=== PATIENT | female | born 1980 | race Hispanic/Latino ===

== ENCOUNTER 2019-03-19 08:21 | Emergency (ER) | payer MEDICAID ==
[2019-03-19 09:11] LABS: #Eosinphils 0.1 thou/uL (0.0-0.7); #Lymphocytes 1.8 thou/uL (1.20-3.40); #Monocytes 0.3 thou/uL (0.11-0.59); #Neutrophils 4.2 thou/uL (1.40-6.50); %Basophils 0.4 % (0.0-1.0); %Eosinophils 1.1 % (0.0-10.0); %Lymphocytes 27.9 % (21.0-51.0); %Monocytes 4.5 % (0.0-10.0); %Neutrophils 66.1 % (42.0-75.0); Hemoglobin 14.6 g/dL (12.0-16.0); Mean Corpuscular HGB CONC 33.4 g/dL (32.0-36.0); Mean Corpuscular Hemoglobin 31.4 pg (27.0-31.0); Mean Platelet Volume 6.9 fL (7.4-10.4); Platelet Count 340 thou/uL (130-400); Red Blood Cell (RBC) Count 4.66 mill/uL (4.20-5.40); White Blood Cell (WBC) Count 6.4 thou/uL (4.8-10.8)
[2019-03-19 09:20] LABS: Bilirubin Negative (Negative); Blood, Urine 3+ (Negative); Clarity Clear (Clear); Glucose, Urine (Dipstick) Normal (Negative); Leukocyte Negative Leu/uL (Negative); Nitrite Negative (Negative); Protein, Urine (Dipstick) Negative (Neg-Trace); RBC/HPF Greater than 50 HPF (0-3); Squamous Epithelial 0-3 HPF (0-3); Urobilinogen Normal mg/dL (Less than 2); WBC/HPF 0-3 HPF (0-3)
--- NOTE | 2019-03-19 09:42 | ULT ---
First trimester obstetrical ultrasound INDICATION: Emergency examination for vaginal bleeding and pelvic pain TECHNIQUE: Grayscale, color Doppler and spectral Doppler was obtained of the pelvis via transvaginal transvaginal approach. FINDINGS: There is an irregular-appearing gestational sac with an internal yolk sac identified. No fe katlyn pole was seen. The mean sac diameter was 1.45 cm giving estimated gestational age of 6 weeks and 2 days. No subchorionic hemorrhage is evident. The right ovary was not visualized. The left ovary measured 1.9 x 1.8 cm. There is a small 1.1 cm follicular cyst within the left ovary. There is normal flow to the left ovary. No free fluid is identified. IMPRESSION: Findings consistent with intrauterine of undetermined viability. Gestational ag e based on mean sac diameter is 6 weeks and 2 days. Nonvisualization the right ovary. 1.1 cm left ovarian follicular cyst.
[2019-03-19 10:12] LABS: Bacteria/HPF Rare-Few HPF (None Seen)
[2019-03-20 02:59] LABS: Chlamydia by PCR Not Detected (NotDetected); GC by PCR Not Detected (NotDetected)
== END 2019-03-19 10:15 | disposition home or self-care (01) ==
LOC: ERS 08:21
DX: O20.0 Threatened abortion (principal); Z3A.01 Less than 8 weeks gestation of pregnancy
CPT/HCPCS: 36415; 76856; 81003; 81015; 84702; 85025; 86900; 86901; 87480; 87491; 87510; 87591; 87660